=== PATIENT | female | born 1995 | race Caucasian/White ===

== ENCOUNTER 2016-09-24 00:48 | Emergency (ER) | payer SELFPAY ==
[~2016-09-24] VITALS: Ht 167.6 cm; Wt 55.0 kg
[2016-09-24] MEDS ORDERED: KETOROLAC 60MG/2ML VIAL IM ONE (01:45)
[2016-09-24 02:06] VITALS: BP 131/87
== END 2016-09-24 03:35 | disposition home or self-care (01) ==
LOC: ER 01:43
DX: S16.1XXA Strain of muscle, fascia and tendon at neck level, initial encounter (principal); R51 Headache; V43.62XA Car passenger injured in collision with other type car in traffic accident, initial encounter; Y93.89 Activity, other specified; Y92.410 Unspecified street and highway as the place of occurrence of the external cause; Y99.8 Other external cause status
CPT/HCPCS: 81025; 96372; 99283; J1885